=== PATIENT | female | born 1975 | race African-American/Black ===

== ENCOUNTER 2017-07-28 22:41 | Emergency (ER) | payer OTHER ==
[2017-07-29] MEDS ORDERED: Diazepam 5 MG TAB ONE (01:57)
[2017-07-29] MEDS ORDERED: Ketorolac Tromethamine 60 MG/2 ML VIAL ONE (01:57)
== END 2017-07-29 02:38 | disposition home or self-care (01) ==
LOC: ERS 22:41
DX: R51 Headache (principal); G43.909 Migraine, unspecified, not intractable, without status migrainosus; I25.10 Atherosclerotic heart disease of native coronary artery without angina pectoris; J44.9 Chronic obstructive pulmonary disease, unspecified; I10 Essential (primary) hypertension; F41.9 Anxiety disorder, unspecified; F31.9 Bipolar disorder, unspecified; F17.210 Nicotine dependence, cigarettes, uncomplicated; Z79.899 Other long term (current) drug therapy
CPT/HCPCS: 96372; 99406; J1885

== ENCOUNTER 2018-03-20 17:58 | Emergency (ER) | payer OTHER ==
[~2018-03-20 17:58] MED LIST: ISOVUE-370 76%-LOCM 1 ML ONE
[2018-03-20 18:38] LABS: #Basophils 0.1 thou/uL (0.0-0.2); #Eosinphils 0.3 thou/uL (0.0-0.7); #Lymphocytes 2.6 thou/uL (1.20-3.40); #Monocytes 0.3 thou/uL (0.11-0.59); #Neutrophils 4.3 thou/uL (1.40-6.50); %Basophils 1.5 % (0.0-1.0); %Eosinophils 3.8 % (0.0-10.0); %Lymphocytes 34.2 % (21.0-51.0); %Monocytes 3.9 % (0.0-10.0); %Neutrophils 56.5 % (42.0-75.0); Hemoglobin 14.3 g/dL (12.0-16.0); Mean Corpuscular HGB CONC 32.6 g/dL (32.0-36.0); Mean Corpuscular Hemoglobin 31.8 pg (27.0-31.0); Mean Corpuscular Volume 97.5 fL (78.0-98.0); Platelet Count 306 thou/uL (130-400); RBC Distribution Width 11.3 % (11.5-14.5); White Blood Cell (WBC) Count 7.5 thou/uL (4.8-10.8)
[2018-03-20 18:55] LABS: Bilirubin Negative (Negative); Blood, Urine Negative (Negative); Clarity CLOUDY (Clear); Glucose, Urine (Dipstick) Negative (Negative); Leukocyte Trace (Negative); Nitrite Negative (Negative); Protein, Urine (Dipstick) Negative (Neg-Trace); Specific Gravity, Urine 1.018 (1.002-1.036); Urobilinogen 0.2 mg/dL (0.2-1.0)
[2018-03-20 18:57] LABS: Pregnancy Test - Urine (BHCG) Negative (Negative); Pregu Control Background? CLEAR/WHITE (CLR/WHITE); Pregu Control Bar Appear? YES (CONTROL BAR); Specific Gravity 1.018 (1.002-1.036)
[2018-03-20 19:00] LABS: Bacteria/HPF 1+ HPF (None Seen); Hyaline Casts/LPF 0-3 HYALINE CAST LPF (0-3 Hyaline); WBC/HPF 0-3 HPF (0-3)
[2018-03-20 19:02] LABS: ALT (SGPT) 21 U/L (8-55); AST (SGOT) 16 U/L (5-34); Albumin 4.5 g/dL (3.5-5.0); Alkaline Phosphatase 66 U/L (40-150); Anion Gap 11 mmol/L (10-20); BUN (Urea Nitrogen) 9 mg/dL (7.0-18.7); Bilirubin, Total 0.4 mg/dL (0.2-1.2); Calc. Creatinine Clearance 0 mL/min (70-130); Calcium 9.8 mg/dL (7.8-10.44); Carbon Dioxide 27 mmol/L (22-29); Chloride 105 mmol/L (98-107); Estimated GFR-MDRD Greater than 90; Globulin 2.9 g/dL (2.4-3.5); Glucose 97 mg/dL (70-105); Potassium 3.8 mmol/L (3.5-5.1); Protein, Total 7.4 g/dL (6.0-8.3); Sodium 139 mmol/L (136-145)
[2018-03-20 19:12] LABS: RBC/HPF 0-3 HPF (0-3)
[2018-03-20] MEDS ORDERED: Morphine 4 MG/ML VIAL ONE (20:25)
--- NOTE | 2018-03-21 07:39 | CT ---
CT ABDOMEN WITH CONTRAST CT PELVIS WITH CONTRAST 03/20/18 HISTORY: Right lower quadrant pain. Evaluate for appendicitis. COMPARISON: 06/07/11. FINDINGS: ABDOMEN CT: Focus of scarring and atelectasis in both lower lobes. Heart size is within normal limits. No signifi cant pericardial fluid. The visualized aorta has a normal caliber. No periaortic fat stranding. Portal vein is patent. Gallbladder is unremarkable. Liver, spleen, pancreas, and adrenal glands have appropriate attenuation and enhancement. No gastrohepatic, retrocrural, or periportal lymphadenopathy. There is scattered, nonspecific, nonenlarged mesenteric lymph nodes. There is no evidence of a mesent shikha mass, free air, or free fluid. Small umbilical hernia containing mesenteric fat. Symmetric enhancement of the kidneys. Subcentimeter hypodensity in the left renal cortex cannot be fu rther characterized but is statistically favored to be a cyst. Bilaterally, no obstructive uropathy. Limited evaluation of the alimentary canal due to lack of oral contrast. Gastric mucosa, duodenum, an d small bowel loops are grossly unremarkable. The ileocecal junction is normal. There is scattered fe gus material in a nondistended, nondilated colon. Occasional diverticulum. No definite diverticulitis . There is a retrocecal appendix, which is air filled. No evidence of appendicitis. PELVIC CT: Uterus and left adnexa are unremarkable. There is a hypodensity in the right adnexa measuring 2.1 x 2 .4 cm. The possibility of a dominant follicle in the right ovary is raised. No significant pelvic lym phadenopathy, free air or free fluid. Unremarkable urinary bladder. There are no lytic or blastic lesions in the osseous structures. IMPRESSION: 1. No evidence of appendicitis. 2. Probable dominant follicle in the right ovary. POS: [facility]
== END 2018-03-20 22:57 | disposition home or self-care (01) ==
LOC: ERS 17:58
DX: N83.201 Unspecified ovarian cyst, right side (principal); I10 Essential (primary) hypertension; G43.909 Migraine, unspecified, not intractable, without status migrainosus; I20.9 Angina pectoris, unspecified; J44.9 Chronic obstructive pulmonary disease, unspecified; F31.9 Bipolar disorder, unspecified; F41.9 Anxiety disorder, unspecified; F17.210 Nicotine dependence, cigarettes, uncomplicated; Z79.899 Other long term (current) drug therapy
CPT/HCPCS: 36415; 74177; 80053; 81003; 81015; 81025; 85025; J2270

== ENCOUNTER 2018-12-11 14:37 | Outpatient (CLI) | payer OTHER ==
--- NOTE | 2018-12-11 15:20 | RAD ---
EXAM: Chest 2 views: HISTORY: Shortness of breath and abnormal pulmonary function tests COMPARISON: 08/22/2011 FINDINGS: There is a normal-sized cardiomediastinal silhouette. There is no evidence of consolidation, mass, or pleural effusion. The bones are unremarkable. IMPRESSION: No evidence of acute cardiopulmonary disease
== END 2018-12-11 14:38 | disposition home or self-care (01) ==
LOC: BICRAD 14:37
PROVIDERS: ATTEND Internal Medicine
DX: J44.9 Chronic obstructive pulmonary disease, unspecified (principal)
CPT/HCPCS: 71046

== ENCOUNTER 2019-03-02 04:00 | Emergency (ER) | payer OTHER ==
[2019-03-02 05:25] LABS: #Basophils 0.1 thou/uL (0.0-0.2); #Eosinphils 0.1 thou/uL (0.0-0.7); #Lymphocytes 1.6 thou/uL (1.20-3.40); #Monocytes 0.2 thou/uL (0.11-0.59); #Neutrophils 5.7 thou/uL (1.40-6.50); %Basophils 0.8 % (0.0-1.0); %Eosinophils 1.3 % (0.0-10.0); %Monocytes 2.6 % (0.0-10.0); %Neutrophils 74.3 % (42.0-75.0); Mean Corpuscular HGB CONC 33.3 g/dL (32.0-36.0); Mean Corpuscular Hemoglobin 32.9 pg (27.0-31.0); Mean Corpuscular Volume 98.7 fL (78.0-98.0); Mean Platelet Volume 8.2 fL (7.4-10.4); Platelet Count 248 thou/uL (130-400); RBC Distribution Width 12.5 % (11.5-14.5); Red Blood Cell (RBC) Count 3.94 mill/uL (4.20-5.40); White Blood Cell (WBC) Count 7.6 thou/uL (4.8-10.8)
[2019-03-02 05:54] LABS: ALT (SGPT) 17 U/L (8-55); AST (SGOT) 14 U/L (5-34); Albumin 4.3 g/dL (3.5-5.0); Alkaline Phosphatase 51 U/L (40-110); Anion Gap 14 mmol/L (10-20); BUN (Urea Nitrogen) 16 mg/dL (7.0-18.7); Bilirubin, Total 0.6 mg/dL (0.2-1.2); Calc. Creatinine Clearance 0 mL/min (70-130); Calcium 8.9 mg/dL (7.8-10.44); Carbon Dioxide 22 mmol/L (22-29); Chloride 109 mmol/L (98-107); Estimated GFR-MDRD 69; Globulin 2.5 g/dL (2.4-3.5); Glucose 119 mg/dL (70-105); Potassium 4.2 mmol/L (3.5-5.1); Protein, Total 6.8 g/dL (6.0-8.3); Sodium 141 mmol/L (136-145)
--- NOTE | 2019-03-02 09:43 | RAD ---
CHEST 1 VIEW: HISTORY: Dyspnea. COMPARISON: 12/11/2018. FINDINGS: Normal cardiac silhouette. The pulmonary vessels and hilum are normal. Costophrenic angles are merly r. No consolidation or mass. No pneumothorax or osseous abnormalities. IMPRESSION: No acute cardiopulmonary process. POS: [facility]
== END 2019-03-02 06:36 | disposition home or self-care (01) ==
LOC: ERS 04:00
DX: J44.1 Chronic obstructive pulmonary disease with (acute) exacerbation (principal); G43.909 Migraine, unspecified, not intractable, without status migrainosus; I25.10 Atherosclerotic heart disease of native coronary artery without angina pectoris; I10 Essential (primary) hypertension; F31.9 Bipolar disorder, unspecified; F41.9 Anxiety disorder, unspecified; F17.210 Nicotine dependence, cigarettes, uncomplicated; Z79.899 Other long term (current) drug therapy
CPT/HCPCS: 36415; 71045; 80053; 83880; 84484; 85025; 93005; 94640; J7620

== ENCOUNTER 2019-03-20 13:17 | Outpatient (CLI) | payer OTHER ==
--- NOTE | 2019-03-25 11:38 | MMO ---
Bilateral MAMMO Bilat Screen DDI. CLINICAL HISTORY: Patient is 44 years old and is seen for screening. The patient has no family history of breast cancer. The patient has no personal history of cancer. VIEWS: The views performed were: bilateral craniocaudal and bilateral mediolateral oblique. FILMS COMPARED: The present examination has been compared to prior imaging studies performed at [facility] on 10/01/2014, 10/19/2015 and 01/10/2017, and at [facility] on 01/03/2018. This study has been interpreted with the assistance of computer-aided detection. MAMMOGRAM FINDINGS: The breasts are heterogeneously dense, which could obscure a lesion on mammography. There is an asymmetry seen in the CC view only seen in the posterior outer region of the right breast. In the left breast, there are no suspicious masses, calcifications or areas of architectural distortion. IMPRESSION: ASYMMETRY IN THE RIGHT BREAST REQUIRES ADDITIONAL EVALUATION. RECOMMEND DIAGNOSTIC MAMMOGRAM. ULTRASOUND MAY ALSO PROVE USEFUL AT RECALL. ACR BI-RADS Category 0 - Incomplete: Need additional imaging evaluation. [facility] will notify the patient of the need for additional imaging services. MAMMOGRAPHY NOTE: 1. A negative mammogram report should not delay a biopsy if a dominant of clinically suspicious mass is present. 2. Approximately 10% to 15% of breast cancers are not detected by mammography. 3. Adenosis and dense breasts may obscure an underlying neoplasm. Reported by: ARIANNA TERRY MD Electonically Signed: [id number]
== END 2019-03-20 13:18 | disposition home or self-care (01) ==
LOC: BICMAMMO 13:17
PROVIDERS: ATTEND Family Medicine
DX: Z12.31 Encounter for screening mammogram for malignant neoplasm of breast (principal); N64.89 Other specified disorders of breast
CPT/HCPCS: 77063; 77067

== ENCOUNTER 2019-04-01 14:51 | Outpatient (CLI) | payer OTHER ==
--- NOTE | 2019-04-01 15:24 | MMO ---
Right Breast MAMMO Unilat Diag DDI RT+TARUN. CLINICAL HISTORY: Patient is 44 years old and is seen for additional evaluation requested at current screening. The patient has no family history of breast cancer. The patient has no personal history of cancer. VIEWS: The views performed were: right craniocaudal spot compression with tomosynthesis and right mediolateral with tomosynthesis. FILMS COMPARED: The present examination has been compared to prior imaging studies performed at [facility] on 10/19/2015, 01/10/2017 and 03/20/2019, and at [facility] on 01/03/2018. This study has been interpreted with the assistance of computer-aided detection. MAMMOGRAM FINDINGS: Asymmetry does not persist on additional views and is felt to represent superimposed breast parenchyma. There are no suspicious masses, suspicious calcifications, or new areas of architectural distortion. IMPRESSION: THERE IS NO MAMMOGRAPHIC EVIDENCE OF MALIGNANCY. A ROUTINE FOLLOW-UP MAMMOGRAM IN 1 YEAR IS RECOMMENDED. THE RESULTS OF THIS EXAM WERE SENT TO THE PATIENT. ACR BI-RADS Category 2 - Benign finding MAMMOGRAPHY NOTE: 1. A negative mammogram report should not delay a biopsy if a dominant of clinically suspicious mass is present. 2. Approximately 10% to 15% of breast cancers are not detected by mammography. 3. Adenosis and dense breasts may obscure an underlying neoplasm. Reported by: KATIA MUNIZ MD Electonically Signed: [id number]
== END 2019-04-01 14:52 | disposition home or self-care (01) ==
LOC: BICMAMMO 14:51
PROVIDERS: ATTEND Family Medicine
DX: N64.89 Other specified disorders of breast (principal)
CPT/HCPCS: G0279

== ENCOUNTER 2019-06-04 09:28 | Outpatient (CLI) | payer OTHER ==
--- NOTE | 2019-06-04 10:19 | MRI ---
MRI CERVICAL SPINE WITHOUT CONTRAST: HISTORY: Cervical neuralgia. Neck pain that radiates down both arms, times a few months. Symptoms are worsenin g.. COMPARISON: None. FINDINGS: Straightening of cervical lordosis may be due to patient position, muscle spasm or a cervical collar. Vertebral body height is maintained. No fracture. No significant STIR hyperintensity to suggest vertebral body edema or ligamentous injury. Visualized brain parenchyma, cervicomedullary junction, cervical cord and the upper thoracic cord hav e a normal size and signal intensity. C2-C3: No significant central canal stenosis or significant neural foraminal narrowing. C3-C4: Central disc protrusion abuts the thecal sac and minimally deforms the midline ventral cord, w ithout cord hyperintensity. Minimal central canal stenosis. Bilaterally, neural foramina are patent. C4-C5: Broad-based disc bulge with a central disc protrusion does make contact with the ventral theca l sac and effaces the midline subarachnoid space. Minimal deformity of the midline cervical cord. No cord hyperintensity. Mild central canal stenosis. Bilaterally, the neural foramina are patent. C5-C6: Broad-based disc bulge abuts the thecal sac. Subarachnoid space is effaced. Minimal contact up on the ventral cord without cord deformity. No significant central canal stenosis. Bilaterally, the neural foramina are patent. C6-C7: Broad-based disc bulge abuts the thecal sac. No significant central canal stenosis or signific ant neural foraminal narrowing. C7-T1: No significant central canal stenosis. Neural foramina are patent. IMPRESSION: 1. No significant central canal stenosis or significant neural foraminal narrowing. 2. Straightening of normal cervical lordosis is presumed to be positional. No STIR hyperintensity to suggest ligamentous injury. Transcribed Date/Time: 06/04/2019 10:33 AM
== END 2019-06-04 09:29 | disposition home or self-care (01) ==
LOC: BICMRI 09:28
PROVIDERS: ATTEND Family Medicine
DX: G58.8 Other specified mononeuropathies (principal)
CPT/HCPCS: 72141

== ENCOUNTER 2019-11-18 17:42 | Emergency (ER) | payer OTHER | END 2019-11-18 18:30 | disposition home or self-care (01) | LOC: ERS 17:42 | DX: J44.1 Chronic obstructive pulmonary disease with (acute) exacerbation (principal); F41.9 Anxiety disorder, unspecified; R07.89 Other chest pain; G43.909 Migraine, unspecified, not intractable, without status migrainosus; I25.10 Atherosclerotic heart disease of native coronary artery without angina pectoris; I10 Essential (primary) hypertension; E78.5 Hyperlipidemia, unspecified; F31.9 Bipolar disorder, unspecified; F17.210 Nicotine dependence, cigarettes, uncomplicated; Z79.899 Other long term (current) drug therapy; Z79.51 Long term (current) use of inhaled steroids | CPT/HCPCS: 93005 ==

== ENCOUNTER 2020-02-28 15:47 | Emergency (ER) | payer OTHER ==
--- NOTE | 2020-02-28 17:25 | RAD ---
XR Chest Pa Lat STANDARD History: Chest pain Comparison: Radiograph 2019 Findings: Lungs are clear. No pneumothorax or effusion. Cardiac silhouette and mediastinal contours a re within normal limits. No acute osseous abnormality. Impression: No acute intrathoracic abnormality.
[2020-02-28] MEDS ORDERED: Ketorolac Tromethamine 30 MG/ML VIAL ONE (18:02)
[2020-02-28] MEDS ORDERED: Tobramycin 0.3% Ophth Oint 3.5 GM TUBE ONE (18:02)
== END 2020-02-28 19:05 | disposition home or self-care (01) ==
LOC: ERS 15:47
DX: M25.512 Pain in left shoulder (principal); M25.511 Pain in right shoulder; G43.909 Migraine, unspecified, not intractable, without status migrainosus; I25.10 Atherosclerotic heart disease of native coronary artery without angina pectoris; J44.9 Chronic obstructive pulmonary disease, unspecified; I10 Essential (primary) hypertension; E78.5 Hyperlipidemia, unspecified; F41.9 Anxiety disorder, unspecified; F31.9 Bipolar disorder, unspecified; F17.210 Nicotine dependence, cigarettes, uncomplicated; Z79.899 Other long term (current) drug therapy; V89.2XXA Person injured in unspecified motor-vehicle accident, traffic, initial encounter
CPT/HCPCS: 71046; 96372; J1885

== ENCOUNTER 2020-10-10 14:06 | Outpatient (CLI) | payer OTHER | END 2020-10-10 14:07 | disposition home or self-care (01) | LOC: BICMAMMO 14:06 | PROVIDERS: ATTEND Obstetrics & Gynecology | DX: Z12.31 Encounter for screening mammogram for malignant neoplasm of breast (principal); J44.1 Chronic obstructive pulmonary disease with (acute) exacerbation | CPT/HCPCS: 71046; 77067 ==

== ENCOUNTER 2020-11-08 15:14 | Outpatient (CLI) | payer OTHER ==
[2020-11-09 07:00] LABS: SARS-CoV-2 PCR by NAA Not Detected (NotDetected)
== END 2020-11-08 15:15 | disposition home or self-care (01) ==
LOC: LABBT 15:14
PROVIDERS: ATTEND Internal Medicine Gastroenterology
DX: Z01.812 Encounter for preprocedural laboratory examination (principal); Z12.11 Encounter for screening for malignant neoplasm of colon; R10.9 Unspecified abdominal pain; Z20.822 Contact with and (suspected) exposure to COVID-19
CPT/HCPCS: U0003; U0005

== ENCOUNTER 2020-11-11 06:44 | Day surgery (SDC) | payer OTHER ==
[2020-11-10 10:40] VITALS: BMI 35.9
[2020-11-11] MEDS ORDERED: PROPOFOL 200 MG/20 ML VIAL ONE (09:24)
[2020-11-11] MEDS ORDERED: Lidocaine 1% PF 5 ML VIAL ONE (09:24)
== END 2020-11-11 12:05 | disposition home or self-care (01) ==
LOC: SDC 06:44
PROVIDERS: ATTEND Internal Medicine Gastroenterology
PROC: 0DBN8ZX Excision of Sigmoid Colon, Via Natural or Artificial Opening Endoscopic, Diagnostic (ICD-10-PCS; principal; 2020-11-11)
PROC: 0DB68ZX Excision of Stomach, Via Natural or Artificial Opening Endoscopic, Diagnostic (ICD-10-PCS; principal; 2020-11-11)
DX: Z12.11 Encounter for screening for malignant neoplasm of colon (principal); D12.5 Benign neoplasm of sigmoid colon; K64.9 Unspecified hemorrhoids; K29.50 Unspecified chronic gastritis without bleeding; K21.9 Gastro-esophageal reflux disease without esophagitis; K25.9 Gastric ulcer, unspecified as acute or chronic, without hemorrhage or perforation; I10 Essential (primary) hypertension; E78.5 Hyperlipidemia, unspecified; G47.30 Sleep apnea, unspecified; G43.909 Migraine, unspecified, not intractable, without status migrainosus; F17.210 Nicotine dependence, cigarettes, uncomplicated; Z79.51 Long term (current) use of inhaled steroids; Z79.899 Other long term (current) drug therapy
CPT/HCPCS: 88305; J2704

== ENCOUNTER 2020-11-28 19:30 | Outpatient (CLI) | payer OTHER | END 2020-11-28 19:31 | disposition home or self-care (01) | LOC: SLEEPLAB 19:30 | PROVIDERS: ATTEND Obstetrics & Gynecology | DX: G47.33 Obstructive sleep apnea (adult) (pediatric) (principal); R53.83 Other fatigue; J44.9 Chronic obstructive pulmonary disease, unspecified; I10 Essential (primary) hypertension; G47.10 Hypersomnia, unspecified; E66.9 Obesity, unspecified; Z68.34 Body mass index [BMI] 34.0-34.9, adult | CPT/HCPCS: 95811 ==

== ENCOUNTER 2021-01-06 14:05 | Outpatient (CLI) | payer OTHER ==
[2021-01-06 15:46] LABS: #Eosinphils 0.5 10x3/uL (0.0-0.5); #Monocytes 0.4 10x3/uL (0.0-1.1); #Neutrophils 3.2 10x3/uL (1.5-8.4); %Basophils 0.5 % (0.0-2.0); %Eosinophils 7.8 % (0.0-6.0); %Lymphocytes 30.7 % (18.0-47.0); %Monocytes 5.9 % (0.0-10.0); %Neutrophils 54.9 % (40.0-75.0); Hemoglobin 13.7 g/dL (12.0-15.5); Mean Corpuscular HGB CONC 32.2 g/dL (32.0-36.0); Mean Corpuscular Hemoglobin 30.6 pg (27.0-33.0); Mean Corpuscular Volume 95.1 fl (81.6-98.3); Mean Platelet Volume 11.1 fl (7.4-10.4); Platelet Count 280 10x3/uL (150-450); RBC Distribution Width 11.8 % (11.5-14.5); Red Blood Cell (RBC) Count 4.47 10x6/uL (3.90-5.03); White Blood Cell (WBC) Count 5.9 10x3/uL (3.5-10.5)
[2021-01-06 16:05] LABS: ALT (SGPT) 26 U/L (8-55); AST (SGOT) 20 U/L (5-34); Albumin 4.4 g/dL (3.5-5.0); Alkaline Phosphatase 69 U/L (40-110); Anion Gap 12 mmol/L (10-20); BUN (Urea Nitrogen) 14 mg/dL (7.0-18.7); Bilirubin, Total 0.8 mg/dL (0.2-1.2); Calc. Creatinine Clearance 0 mL/min (70-130); Calcium 10.2 mg/dL (7.8-10.44); Carbon Dioxide 27 mmol/L (22-29); Chloride 105 mmol/L (98-107); Globulin 2.8 g/dL (2.4-3.5); Glucose 93 mg/dL (70-105); Potassium 4.4 mmol/L (3.5-5.1); Protein, Total 7.2 g/dL (6.0-8.3)
[2021-01-06 16:11] LABS: Sodium 140 mmol/L (136-145)
[2021-01-07 13:56] LABS: SARS-CoV-2 PCR by NAA Not Detected (NotDetected)
== END 2021-01-06 14:06 | disposition home or self-care (01) ==
LOC: LABBT 14:05
PROVIDERS: ATTEND Internal Medicine Cardiovascular Disease
DX: Z01.812 Encounter for preprocedural laboratory examination (principal); Z20.822 Contact with and (suspected) exposure to COVID-19
CPT/HCPCS: 80053; 85025; U0003; U0005

== ENCOUNTER 2021-01-11 06:03 | Day surgery (SDC) | payer OTHER ==
[2021-01-10 14:53] VITALS: BMI 33.6
[2021-01-11] MEDS ORDERED: Heparin 10,000 UNITS/ 10 ML VIAL ONE (06:38)
[2021-01-11] MEDS ORDERED: Midazolam HCl 2 mg/2 ml Vial ONE ×2 (06:56→08:29)
[2021-01-11] MEDS ORDERED: Fentanyl 100 MCG/2 ML VIAL ONE (06:56)
[2021-01-11] MEDS ORDERED: Nitroglycerin 100MG/250ML BOT 250 ML ONE (06:58)
[2021-01-11] MEDS ORDERED: Verapamil 5 MG/2 ML VIAL ONE (06:58)
[2021-01-11] MEDS ORDERED: Lidocaine 1% (PF) 30 ML VIAL ONE (07:08)
[2021-01-11] MEDS ORDERED: hydrALAZINE 20 MG/ML VIAL ONE ×2 (07:20→07:27)
[2021-01-11] MEDS ORDERED: diphenhydrAMINE 25 MG CAP ONE (08:21)
[2021-01-11] MEDS ORDERED: methylPREDNISolone Sod Succ/PF 125 MG/2 ML VIAL ONE (08:22)
[2021-01-11] MEDS ORDERED: diphenhydrAMINE 50 MG/ML VIAL ONE (08:22)
[2021-01-11] MEDS ORDERED: Hydrocortisone Sod Succ/PF 100 mg/2 ml Vial ONE (08:22)
[2021-01-11] MEDS ORDERED: Furosemide 20 MG/2 ML VIAL ONE (08:26)
[2021-01-11] MEDS ORDERED: Acetaminophen 500 MG TAB ONE (10:49)
[2021-01-11] MEDS ORDERED: Iopamidol 370 76% 100 ML VIAL ONE (13:48)
== END 2021-01-11 15:06 | disposition home or self-care (01) ==
LOC: CCL 06:03
PROVIDERS: ATTEND Internal Medicine Cardiovascular Disease
PROC: 4A023N7 Measurement of Cardiac Sampling and Pressure, Left Heart, Percutaneous Approach (ICD-10-PCS; principal; 2021-01-11)
PROC: B2111ZZ Fluoroscopy of Multiple Coronary Arteries using Low Osmolar Contrast (ICD-10-PCS; principal; 2021-01-11)
DX: I20.9 Angina pectoris, unspecified (principal); R06.02 Shortness of breath; E78.00 Pure hypercholesterolemia, unspecified; I11.9 Hypertensive heart disease without heart failure; E78.5 Hyperlipidemia, unspecified; G47.33 Obstructive sleep apnea (adult) (pediatric); E28.2 Polycystic ovarian syndrome; F17.210 Nicotine dependence, cigarettes, uncomplicated; R06.2 Wheezing; R00.1 Bradycardia, unspecified; Z79.82 Long term (current) use of aspirin; Z79.899 Other long term (current) drug therapy
CPT/HCPCS: 76942; 93005; 93458; 99152; 99153; J0360; J1200; J1644; J1720; J1940; J2001; J2250; J2930; J3010; Q9967

== ENCOUNTER 2021-02-13 13:15 | Outpatient (CLI) | payer OTHER | END 2021-02-13 13:16 | disposition home or self-care (01) | LOC: BICCT 13:15 | PROVIDERS: ATTEND Internal Medicine | DX: J44.1 Chronic obstructive pulmonary disease with (acute) exacerbation (principal); R91.8 Other nonspecific abnormal finding of lung field | CPT/HCPCS: 71250 ==

== ENCOUNTER 2021-10-05 18:21 | Emergency (ER) | payer OTHER ==
[2021-10-05] MEDS ORDERED: HYDROmorphone 0.5 MG/0.5 ML SYRINGE ONE (20:32)
[2021-10-05] MEDS ORDERED: Lidocaine 1% PF 5 ML VIAL ONE (20:35)
[2021-10-05] MEDS ORDERED: Sulfameth/Trimethoprim DS 800-160mg TAB ONE (21:02)
== END 2021-10-05 21:04 | disposition home or self-care (01) ==
LOC: ERS 18:21
DX: L02.411 Cutaneous abscess of right axilla (principal); J44.9 Chronic obstructive pulmonary disease, unspecified; I10 Essential (primary) hypertension; E78.5 Hyperlipidemia, unspecified; F17.210 Nicotine dependence, cigarettes, uncomplicated
CPT/HCPCS: 10060; 96372; J1170

== ENCOUNTER 2022-03-08 12:08 | Outpatient (CLI) | payer OTHER | END 2022-03-08 12:09 | disposition home or self-care (01) | LOC: BICMAMMO 12:08 | PROVIDERS: ATTEND Student in an Organized Health Care Education/Training Program | DX: Z12.31 Encounter for screening mammogram for malignant neoplasm of breast (principal) | CPT/HCPCS: 77067 ==

== ENCOUNTER 2022-03-22 10:48 | Outpatient (CLI) | payer OTHER | END 2022-03-22 10:49 | disposition home or self-care (01) | LOC: BICRAD 10:48 | PROVIDERS: ATTEND Registered Nurse | DX: M47.22 Other spondylosis with radiculopathy, cervical region (principal) | CPT/HCPCS: 72040 ==

== ENCOUNTER 2022-04-04 15:04 | Inpatient (IN) | payer OTHER ==
[~2022-04-04 15:04] MED LIST changes: -ISOVUE-370 76%-LOCM 1 ML ONE; +Iopamidol-370 76% 500 ML 1 ML ONE
[2022-04-04 15:43] LABS: #Lymphocytes 0.6 thou/uL (1.20-3.40); #Monocytes 0.4 thou/uL (0.11-0.59); #Neutrophils 9.7 thou/uL (1.40-6.50); %Basophils 0.2 % (0.0-1.0); %Eosinophils 0.3 % (0.0-10.0); %Lymphocytes 5.7 % (21.0-51.0); %Monocytes 3.4 % (0.0-10.0); %Neutrophils 90.4 % (42.0-75.0); Hemoglobin 14.6 g/dL (12.0-16.0); Mean Corpuscular HGB CONC 31.6 g/dL (32.0-36.0); Mean Corpuscular Hemoglobin 32.2 pg (27.0-31.0); Mean Platelet Volume 8.6 fL (7.4-10.4); Platelet Count 226 10x3/uL (130-400); RBC Distribution Width 12.7 % (11.5-14.5); Red Blood Cell (RBC) Count 4.52 mill/uL (4.20-5.40); White Blood Cell (WBC) Count 10.7 10x3/uL (4.8-10.8)
[2022-04-04 16:14] LABS: ALT (SGPT) 53 U/L (8-55); AST (SGOT) 23 U/L (5-34); Albumin 4.6 g/dL (3.5-5.0); Alkaline Phosphatase 98 U/L (40-110); Anion Gap 11 mmol/L (10-20); BUN (Urea Nitrogen) 9 mg/dL (7.0-18.7); Bilirubin, Total 1.1 mg/dL (0.2-1.2); Calc. Creatinine Clearance 0 mL/min (70-130); Carbon Dioxide 30 mmol/L (22-29); Chloride 100 mmol/L (98-107); Estimated GFR 82; Globulin 3.5 g/dL (2.4-3.5); Glucose 100 mg/dL (70-105); Potassium 4.1 mmol/L (3.5-5.1); Protein, Total 8.1 g/dL (6.0-8.3); Sodium 137 mmol/L (136-145)
[2022-04-04] MEDS ORDERED: Acetaminophen 500 MG TAB ONE (17:00)
[2022-04-04] MEDS ORDERED: Ibuprofen 800 MG TAB ONE (17:00)
[2022-04-04 17:54] LABS: CKMB 3.1 ng/mL (0-6.6)
[2022-04-04 18:50] LABS: BHCG - Serum Negative (NEGATIVE); Pregs Control Background? CLEAR/WHITE (CLR/WHITE); Pregs Control Bar Appear? YES (CONTROL BAR)
[2022-04-04] MEDS ORDERED: Albuterol Sulfate 2.5 mg/3 ml Neb ONE ×2 (18:51→22:01)
[2022-04-04] MEDS ORDERED: methylPREDNISolone Sod Succ/PF 125 MG/2 ML VIAL ONE (19:03)
[2022-04-04] MEDS ORDERED: cefTRIAXone\\ROCEPHIN 2 GM VIAL ONE (19:08)
[2022-04-04 20:01] LABS: Bilirubin Negative (Negative); Blood, Urine Negative (Negative); Clarity Clear (Clear); Glucose, Urine (Dipstick) Normal (Negative); Ketone, Urine Trace mg/dL (Negative); Leukocyte Negative Leu/uL (Negative); Nitrite Negative (Negative); Protein, Urine (Dipstick) 10 mg/dL (Neg-Trace); Specific Gravity, Urine 1.007 (1.002-1.036); Urobilinogen Normal mg/dL (Less than 2); pH, Urine 6.5 (5.0-9.0)
[2022-04-04 21:20] LABS: SARS-CoV-2 NAA Rapid Test Not Detected (NotDetected)
[2022-04-04] MEDS ORDERED: Oseltamivir 75 MG CAP PO SCH (22:15)
[2022-04-04] MEDS ORDERED: Azithromycin 500 MG VIAL ONE (22:52)
[2022-04-04] MEDS ORDERED: Aspirin Chewable 81 MG TAB ONE (22:52)
[2022-04-04] MEDS ORDERED: Ondansetron ODT 4 MG TAB PO PRN (22:58)
[2022-04-04] MEDS ORDERED: Ondansetron PF 4 MG/2 ML Vial IVP PRN (22:58)
[2022-04-04] MEDS ORDERED: Acetaminophen 325 MG TAB PO PRN (22:58)
[2022-04-04] MEDS ORDERED: Lactated Ringer's 1,000 ML IV SCH (23:15)
[2022-04-05] MEDS ORDERED: Amlodipine 5 MG TAB ONE (00:19)
[2022-04-05 00:28] LABS: CKMB 3.8 ng/mL (0-6.6)
[2022-04-05 01:42] VITALS: BMI 32.9
[2022-04-05 02:08] LABS: #Lymphocytes 0.5 thou/uL (1.20-3.40); #Neutrophils 9.2 thou/uL (1.40-6.50); %Lymphocytes 5.5 % (21.0-51.0); %Monocytes 0.3 % (0.0-10.0); %Neutrophils 94.1 % (42.0-75.0); Hemoglobin 13.7 g/dL (12.0-16.0); Mean Corpuscular HGB CONC 31.3 g/dL (32.0-36.0); Mean Corpuscular Hemoglobin 31.8 pg (27.0-31.0); Mean Platelet Volume 8.8 fL (7.4-10.4); Platelet Count 199 10x3/uL (130-400); RBC Distribution Width 12.6 % (11.5-14.5); Red Blood Cell (RBC) Count 4.31 mill/uL (4.20-5.40); White Blood Cell (WBC) Count 9.8 10x3/uL (4.8-10.8)
[2022-04-05] MEDS: Lactated Ringer's 1,000 ML IV SCH ×4 (02:13→21:32)
[2022-04-05 02:59] LABS: ALT (SGPT) 44 U/L (8-55); AST (SGOT) 21 U/L (5-34); Albumin 4.1 g/dL (3.5-5.0); Alkaline Phosphatase 100 U/L (40-110); Anion Gap 13 mmol/L (10-20); BUN (Urea Nitrogen) 10 mg/dL (7.0-18.7); Bilirubin, Total 0.5 mg/dL (0.2-1.2); Calc. Creatinine Clearance 98 mL/min (70-130); Calcium 9.5 mg/dL (7.8-10.44); Carbon Dioxide 27 mmol/L (22-29); Chloride 100 mmol/L (98-107); Estimated GFR 82; Globulin 3.3 g/dL (2.4-3.5); Glucose 153 mg/dL (70-105); Potassium 4.2 mmol/L (3.5-5.1); Protein, Total 7.4 g/dL (6.0-8.3); Sodium 136 mmol/L (136-145)
[2022-04-05] MEDS: Hydrochlorothiazide 25 MG TAB PO SCH (08:03)
[2022-04-05] MEDS: Atorvastatin Calcium 40 MG TAB PO SCH (08:03)
[2022-04-05] MEDS: Bupropion 150 MG XL TAB PO SCH (08:03)
[2022-04-05] MEDS: Enoxaparin Sodium 40 MG/0.4 ML SYRINGE SC SCH (08:04)
[2022-04-05] MEDS: Losartan 25 MG TAB PO SCH (08:04)
[2022-04-05] MEDS ORDERED: Non-Formulary Item 1 EACH (Lurasidone 20 MG Tab) PO SCH (09:00)
[2022-04-05] MEDS ORDERED: Oseltamivir 75 MG CAP PO SCH (09:00)
[2022-04-05] MEDS ORDERED: predniSONE 20 MG TAB PO SCH (12:00)
[2022-04-05] MEDS: Oseltamivir 75 MG CAP PO SCH (21:31)
[2022-04-06] MEDS: Lactated Ringer's 1,000 ML IV SCH ×4 (00:42→15:34)
[2022-04-06] MEDS: Oseltamivir 75 MG CAP PO SCH ×2 (07:46→22:05)
[2022-04-06] MEDS: Losartan 25 MG TAB PO SCH (07:47)
[2022-04-06] MEDS: predniSONE 20 MG TAB PO SCH (07:47)
[2022-04-06] MEDS: Hydrochlorothiazide 25 MG TAB PO SCH (07:47)
[2022-04-06] MEDS: Bupropion 150 MG XL TAB PO SCH (07:47)
[2022-04-06] MEDS: Atorvastatin Calcium 40 MG TAB PO SCH (07:47)
[2022-04-06] MEDS: Enoxaparin Sodium 40 MG/0.4 ML SYRINGE SC SCH (07:49)
[2022-04-07] MEDS: Lactated Ringer's 1,000 ML IV SCH ×2 (00:16→04:21)
[2022-04-07 04:24] LABS: #Lymphocytes 1.3 thou/uL (1.20-3.40); #Monocytes 0.4 thou/uL (0.11-0.59); #Neutrophils 3.5 thou/uL (1.40-6.50); %Basophils 0.1 % (0.0-1.0); %Eosinophils 0.5 % (0.0-10.0); %Lymphocytes 24.5 % (21.0-51.0); %Monocytes 7.2 % (0.0-10.0); %Neutrophils 67.8 % (42.0-75.0); Hemoglobin 12.3 g/dL (12.0-16.0); Mean Corpuscular HGB CONC 30.3 g/dL (32.0-36.0); Mean Corpuscular Hemoglobin 30.9 pg (27.0-31.0); Mean Platelet Volume 9.4 fL (7.4-10.4); Platelet Count 219 10x3/uL (130-400); RBC Distribution Width 12.3 % (11.5-14.5); Red Blood Cell (RBC) Count 3.98 mill/uL (4.20-5.40); White Blood Cell (WBC) Count 5.1 10x3/uL (4.8-10.8)
[2022-04-07 04:51] LABS: Anion Gap 11 mmol/L (10-20); BUN (Urea Nitrogen) 19 mg/dL (7.0-18.7); Calc. Creatinine Clearance 93 mL/min (70-130); Calcium 9.2 mg/dL (7.8-10.44); Carbon Dioxide 30 mmol/L (22-29); Chloride 103 mmol/L (98-107); Estimated GFR 77; Glucose 96 mg/dL (70-105); Potassium 4.1 mmol/L (3.5-5.1); Sodium 140 mmol/L (136-145)
[2022-04-07] MEDS: Oseltamivir 75 MG CAP PO SCH ×2 (09:48→21:43)
[2022-04-07] MEDS: predniSONE 20 MG TAB PO SCH (09:48)
[2022-04-07] MEDS: Bupropion 150 MG XL TAB PO SCH (09:48)
[2022-04-07] MEDS: Atorvastatin Calcium 40 MG TAB PO SCH (09:48)
[2022-04-07] MEDS: Enoxaparin Sodium 40 MG/0.4 ML SYRINGE SC SCH (09:48)
[2022-04-07] MEDS: Hydrochlorothiazide 25 MG TAB PO SCH (09:48)
[2022-04-07] MEDS: Losartan 25 MG TAB PO SCH (09:48)
[2022-04-07] MEDS ORDERED: Hydrochlorothiazide 25 MG TAB PO SCH (12:16)
[2022-04-07] MEDS ORDERED: hydrALAZINE 20 MG/ML VIAL SLOW IVP SCH (23:30)
[2022-04-08] MEDS ORDERED: hydrALAZINE 20 MG/ML VIAL SLOW IVP PRN (01:00)
[2022-04-08] MEDS ORDERED: hydrOXYzine 25 MG TAB PO PRN (02:10)
[2022-04-08 08:47] VITALS: BP 159/79; TEMP 98.6
[2022-04-08] MEDS ORDERED: Hydrochlorothiazide 25 MG TAB PO SCH (09:00)
[2022-04-08] MEDS ORDERED: NIFEdipine XL 30 MG TAB PO SCH (09:00)
[2022-04-08] MEDS: Atorvastatin Calcium 40 MG TAB PO SCH (09:31)
[2022-04-08] MEDS: Bupropion 150 MG XL TAB PO SCH (09:31)
[2022-04-08] MEDS: Enoxaparin Sodium 40 MG/0.4 ML SYRINGE SC SCH (09:31)
[2022-04-08] MEDS: predniSONE 20 MG TAB PO SCH (09:31)
[2022-04-08] MEDS: Oseltamivir 75 MG CAP PO SCH (09:31)
[2022-04-08] MEDS: Losartan 25 MG TAB PO SCH (11:16)
== END 2022-04-08 11:35 | disposition home or self-care (01) | DRG 193 ==
LOC: ERS 15:04 → 2NO 22:52 → OBSVTOIN 04-05 17:32 → T4-B 04-07 22:51
PROVIDERS: ADMIT Family Medicine; ATTEND Family Medicine
DX: J10.00 Influenza due to other identified influenza virus with unspecified type of pneumonia (principal); J96.01 Acute respiratory failure with hypoxia; J45.901 Unspecified asthma with (acute) exacerbation; Z20.822 Contact with and (suspected) exposure to COVID-19; I10 Essential (primary) hypertension; F31.9 Bipolar disorder, unspecified; G47.33 Obstructive sleep apnea (adult) (pediatric); E66.9 Obesity, unspecified; E86.0 Dehydration; F17.210 Nicotine dependence, cigarettes, uncomplicated; G43.909 Migraine, unspecified, not intractable, without status migrainosus; Z79.51 Long term (current) use of inhaled steroids; Z79.899 Other long term (current) drug therapy; Z68.32 Body mass index [BMI] 32.0-32.9, adult
CPT/HCPCS: 36415; 36416; 71046; 71275; 80048; 80053; 81003; 82553; 83605; 83880; 84145; 84484; 84703; 85025; 87040; 93005; 94640; 96365; 96366; 96367; 96372; 96375; G0378; J0360; J0456; J0696; J1650; J2930; J7120; J7512; J7611; J7620; Q9967

== ENCOUNTER 2022-05-23 10:22 | Outpatient (CLI) | payer OTHER | END 2022-05-23 10:23 | disposition home or self-care (01) | LOC: MRI 10:22 | PROVIDERS: ATTEND Registered Nurse | DX: M54.12 Radiculopathy, cervical region (principal) | CPT/HCPCS: 72141 ==

== ENCOUNTER 2023-03-14 20:40 | Emergency (ER) | payer OTHER ==
[~2023-03-14 20:40] MED LIST changes: -Iopamidol-370 76% 500 ML 1 ML ONE; +Iopamidol-370 76% 500 ML MDV (1 ML CHARGE) ONE
[2023-03-14 21:19] LABS: #Basophils 0.1 thou/uL (0.0-0.2); #Eosinphils 0.4 thou/uL (0.0-0.7); #Monocytes 0.4 thou/uL (0.11-0.59); %Basophils 0.6 % (0.0-1.0); %Eosinophils 5.1 % (0.0-10.0); %Lymphocytes 28.2 % (21.0-51.0); %Monocytes 4.8 % (0.0-10.0); %Neutrophils 60.9 % (42.0-75.0); Hematocrit 39.9 % (36.0-47.0); Mean Corpuscular HGB CONC 32.6 g/dL (32.0-36.0); Mean Corpuscular Hemoglobin 31.6 pg (27.0-31.0); Mean Corpuscular Volume 96.8 fl (78.0-98.0); Mean Platelet Volume 10.7 fL (7.4-10.4); Platelet Count 274 10x3/uL (130-400); RBC Distribution Width 13.2 % (11.5-14.5); Red Blood Cell (RBC) Count 4.12 mill/uL (4.20-5.40); White Blood Cell (WBC) Count 8.2 10x3/uL (4.8-10.8)
[2023-03-14 21:40] LABS: ALT (SGPT) 19 U/L (8-55); AST (SGOT) 18 U/L (5-34); Albumin 4.7 g/dL (3.5-5.0); Alkaline Phosphatase 68 U/L (40-110); Anion Gap 11 mmol/L (10-20); BUN (Urea Nitrogen) 14 mg/dL (7.0-18.7); Bilirubin, Total 0.3 mg/dL (0.2-1.2); Calc. Creatinine Clearance 0 mL/min (70-130); Calcium 9.4 mg/dL (7.8-10.44); Carbon Dioxide 28 mmol/L (22-29); Chloride 106 mmol/L (98-107); Estimated GFR 73; Globulin 2.5 g/dL (2.4-3.5); Glucose 120 mg/dL (70-105); Potassium 3.7 mmol/L (3.5-5.1); Protein, Total 7.2 g/dL (6.0-8.3); Sodium 141 mmol/L (136-145)
[2023-03-14] MEDS ORDERED: Ipratropium/Albuterol 3 ML NEB ONE (23:54)
[2023-03-14] MEDS ORDERED: Albuterol 2.5 MG/0.5 ML NEB ONE (23:55)
[2023-03-15] MEDS ORDERED: Dexamethasone 10 MG/ML VIAL ONE (00:03)
[2023-03-15] MEDS ORDERED: Nitroglycerin 0.4 MG TAB 1 EACH ONE (00:03)
[2023-03-15] MEDS ORDERED: Magnesium 2 GM/50 ML BAG (IN WATER) ONE (00:10)
[2023-03-15] MEDS ORDERED: Albuterol 2.5 MG/0.5 ML NEB ONE (00:55)
[2023-03-15] MEDS ORDERED: Furosemide 20 MG/2 ML VIAL ONE (01:00)
== END 2023-03-15 03:08 | disposition home or self-care (01) ==
LOC: ERS 20:40
DX: R60.9 Edema, unspecified (principal); J44.1 Chronic obstructive pulmonary disease with (acute) exacerbation; I10 Essential (primary) hypertension; G47.33 Obstructive sleep apnea (adult) (pediatric); I25.10 Atherosclerotic heart disease of native coronary artery without angina pectoris; E78.5 Hyperlipidemia, unspecified; F17.210 Nicotine dependence, cigarettes, uncomplicated
CPT/HCPCS: 36415; 70491; 71045; 80053; 83880; 84443; 85025; 93005; 96365; 96375; J1100; J1940; J3475; J7611; J7620; Q9967

== ENCOUNTER 2023-05-14 13:24 | Outpatient (CLI) | payer OTHER | END 2023-05-14 13:25 | disposition home or self-care (01) | LOC: BICMAMMO 13:24 | PROVIDERS: ATTEND Student in an Organized Health Care Education/Training Program | DX: Z12.31 Encounter for screening mammogram for malignant neoplasm of breast (principal) | CPT/HCPCS: 77067 ==

== ENCOUNTER 2023-11-01 16:00 | Outpatient (CLI) | payer OTHER | END 2023-11-01 16:01 | disposition home or self-care (01) | LOC: SLEEPLAB 16:00 | PROVIDERS: ATTEND Otolaryngology Otolaryngic Allergy | DX: G47.33 Obstructive sleep apnea (adult) (pediatric) (principal); R53.83 Other fatigue; R06.83 Snoring; G47.10 Hypersomnia, unspecified; E66.9 Obesity, unspecified; Z68.33 Body mass index [BMI] 33.0-33.9, adult | CPT/HCPCS: 95811 ==

== ENCOUNTER 2023-11-21 17:14 | Inpatient (IN) | payer OTHER ==
[~2023-11-21 17:14] MED LIST changes: -Iopamidol-370 76% 500 ML MDV (1 ML CHARGE) ONE; +Prochlorperazine Edisylate 10 MG in Sodium Chloride 0.9% 50 ML IVPB ONE
[2023-11-21] MEDS ORDERED: diphenhydrAMINE 50 MG/ML VIAL ONE (17:51)
[2023-11-21] MEDS ORDERED: Labetalol HCl 100 MG/20 ML VIAL ONE (17:51)
[2023-11-21] MEDS ORDERED: Metoclopramide HCl 10 MG (2 mL) VIAL ONE (17:51)
[2023-11-21 17:59] LABS: #Basophils Less than 0.03 10x3/uL (0.0-0.2); #Eosinphils Less than 0.03 10x3/uL (0.0-0.7); %Basophils 0.1 % (0.0-1.0); %Lymphocytes 28.9 % (21.0-51.0); %Monocytes 4.8 % (0.0-10.0); %Neutrophils 65.9 % (42.0-75.0); Hematocrit 45.6 % (36.0-47.0); Hemoglobin 15.2 g/dL (12.0-16.0); Mean Corpuscular HGB CONC 33.3 g/dL (32.0-36.0); Mean Corpuscular Hemoglobin 30.5 pg (27.0-31.0); Mean Corpuscular Volume 91.6 fL (78.0-98.0); Mean Platelet Volume 10.8 fL (7.4-10.4); Platelet Count 221 10x3/uL (130-400); RBC Distribution Width 12.6 % (11.5-14.5); Red Blood Cell (RBC) Count 4.98 mill/uL (4.20-5.40)
[2023-11-21 18:14] LABS: ALT (SGPT) 21 U/L (8-55); AST (SGOT) 18 U/L (5-34); Albumin 4.4 g/dL (3.5-5.0); Alkaline Phosphatase 85 U/L (40-110); Anion Gap 15 mmol/L (10-20); BUN (Urea Nitrogen) 18 mg/dL (7.0-18.7); Bilirubin, Total 0.5 mg/dL (0.2-1.2); Calc. Creatinine Clearance 0 mL/min (70-130); Calcium 9.9 mg/dL (7.8-10.44); Carbon Dioxide 24 mmol/L (22-29); Chloride 107 mmol/L (98-107); Estimated GFR 55; Globulin 3.1 g/dL (2.4-3.5); Glucose 92 mg/dL (70-105); Potassium 3.8 mmol/L (3.5-5.1); Protein, Total 7.5 g/dL (6.0-8.3); Sodium 142 mmol/L (136-145)
[2023-11-21 18:19] LABS: Troponin I 0.029 ng/mL (< 0.028)
[2023-11-21] MEDS ORDERED: Albuterol 2.5 MG (0.5 mL) NEB ONE (19:39)
[2023-11-21] MEDS ORDERED: Ipratropium Bromide 2.5 ml Neb ONE (19:39)
[2023-11-21 21:25] LABS: Hemoglobin A1c 5.3 % (4.0-6.0)
[2023-11-21 21:33] LABS: Troponin I 0.018 ng/mL (< 0.028)
[2023-11-21] MEDS ORDERED: hydrALAZINE 20 MG/ML VIAL SLOW IVP PRN (21:36)
[2023-11-21] MEDS ORDERED: diphenhydrAMINE 50 MG/ML VIAL IVP SCH (22:00)
[2023-11-21 22:23] VITALS: BMI 35.9
[2023-11-21] MEDS ORDERED: Gabapentin 300 MG CAP PO PRN (22:50)
[2023-11-21] MEDS: Ipratropium/Albuterol 3 ML NEB NEB SCH (22:56)
[2023-11-21] MEDS: Acetaminophen 500 MG TAB PO PRN (22:58)
[2023-11-21] MEDS: diphenhydrAMINE 50 MG/ML VIAL IVP SCH (23:00)
[2023-11-21] MEDS: Prochlorperazine Edisylate 10 MG in Sodium Chloride 0.9% 50 ML IVPB SCH (23:01)
[2023-11-21] MEDS: Losartan 25 MG TAB PO SCH (23:50)
[2023-11-21] MEDS: NIFEdipine XL 60 MG ER.TAB PO SCH (23:52)
[2023-11-21] MEDS: Furosemide 20 MG TAB PO SCH (23:52)
[2023-11-22 00:35] LABS: Troponin I 0.016 ng/mL (< 0.028)
[2023-11-22 04:49] LABS: Amphetamine Not Detected (NotDetected); Barbiturates Screen Not Detected (NotDetected); Benzodiazepine Screen Not Detected (NotDetected); Cocaine Metabolite Screen Not Detected (NotDetected); Methadone Not Detected (NotDetected); Methamphetamine Not Detected (NotDetected); Opiate Screen Not Detected (NotDetected); Oxycodone Screen Not Detected (NotDetected); Phencyclidine (PCP) Not Detected (NotDetected); THC/Cannabinoid Screen Not Detected (NotDetected); Tricyclic Screen Not Detected (NotDetected)
[2023-11-22 04:55] LABS: #Basophils Less than 0.03 10x3/uL (0.0-0.2); #Eosinphils Less than 0.03 10x3/uL (0.0-0.7); %Basophils 0.3 % (0.0-1.0); %Lymphocytes 35.4 % (21.0-51.0); %Monocytes 5.8 % (0.0-10.0); %Neutrophils 58.2 % (42.0-75.0); Hematocrit 42.3 % (36.0-47.0); Hemoglobin 13.9 g/dL (12.0-16.0); Mean Corpuscular HGB CONC 32.9 g/dL (32.0-36.0); Mean Corpuscular Hemoglobin 30.5 pg (27.0-31.0); Mean Platelet Volume 11.1 fL (7.4-10.4); Platelet Count 200 10x3/uL (130-400); RBC Distribution Width 12.6 % (11.5-14.5); Red Blood Cell (RBC) Count 4.55 mill/uL (4.20-5.40)
[2023-11-22 05:10] LABS: Anion Gap 13 mmol/L (10-20); BUN (Urea Nitrogen) 16 mg/dL (7.0-18.7); Calc. Creatinine Clearance 109 mL/min (70-130); Calcium 9.1 mg/dL (7.8-10.44); Carbon Dioxide 22 mmol/L (22-29); Cardiac Risk 4.4 (Less than 4.5); Chloride 108 mmol/L (98-107); Cholesterol 209 mg/dl (< 200 Desired); Estimated GFR 85; Glucose 117 mg/dL (70-105); HDL Cholesterol 47 mg/dL (>60 Neg Risk); LDL Cholesterol, Calculated 149 mg/dL; Potassium 3.8 mmol/L (3.5-5.1); Sodium 139 mmol/L (136-145); Triglycerides 65 mg/dL (Less than 150)
[2023-11-22] MEDS: Mometasone 200 MCG/Formoterol 5 MCG 120 PUFF INHALER INH SCH (06:35)
[2023-11-22] MEDS: Ipratropium Bromide 2.5 ml Neb NEB SCH (06:36)
[2023-11-22] MEDS: Nicotine 21 MG PATCH TD SCH (08:40)
[2023-11-22] MEDS: Empagliflozin 10 MG TAB PO SCH (08:40)
[2023-11-22] MEDS: Pantoprazole DR 40 MG TAB PO SCH (08:40)
[2023-11-22] MEDS: Furosemide 20 MG TAB PO SCH (08:40)
[2023-11-22] MEDS: Enoxaparin 40 MG (0.4 mL) SYRINGE SC SCH (08:40)
[2023-11-22] MEDS ORDERED: BENRALIZUMAB 30 MG/ML SC SCH (09:00)
[2023-11-22] MEDS: NIFEdipine XL 60 MG ER.TAB PO SCH (21:44)
[2023-11-22] MEDS: Losartan 25 MG TAB PO SCH (21:44)
[2023-11-22] MEDS: Atorvastatin Calcium 40 MG TAB PO SCH (21:45)
[2023-11-23 03:53] LABS: #Basophils Less than 0.03 10x3/uL (0.0-0.2); #Eosinphils Less than 0.03 10x3/uL (0.0-0.7); %Basophils 0.3 % (0.0-1.0); %Lymphocytes 27.7 % (21.0-51.0); %Monocytes 7.4 % (0.0-10.0); %Neutrophils 64.3 % (42.0-75.0); Hematocrit 42.4 % (36.0-47.0); Hemoglobin 13.6 g/dL (12.0-16.0); Mean Corpuscular HGB CONC 32.1 g/dL (32.0-36.0); Mean Corpuscular Hemoglobin 30.4 pg (27.0-31.0); Mean Corpuscular Volume 94.9 fL (78.0-98.0); Mean Platelet Volume 10.9 fL (7.4-10.4); Platelet Count 207 10x3/uL (130-400); RBC Distribution Width 12.6 % (11.5-14.5); Red Blood Cell (RBC) Count 4.47 mill/uL (4.20-5.40)
[2023-11-23 04:33] LABS: Anion Gap 12 mmol/L (10-20); BUN (Urea Nitrogen) 18 mg/dL (7.0-18.7); Calc. Creatinine Clearance 96 mL/min (70-130); Calcium 9.8 mg/dL (7.8-10.44); Carbon Dioxide 26 mmol/L (22-29); Chloride 105 mmol/L (98-107); Estimated GFR 72; Glucose 117 mg/dL (70-105); Potassium 3.7 mmol/L (3.5-5.1); Sodium 139 mmol/L (136-145)
[2023-11-23] MEDS ORDERED: Ibuprofen 200 MG TAB PO PRN (10:30)
[2023-11-23] MEDS: Acetaminophen 500 MG TAB PO SCH (14:05)
[2023-11-23] MEDS: predniSONE 20 MG TAB PO SCH (14:06)
[2023-11-24] MEDS ORDERED: Ipratropium/Albuterol 3 ML NEB ONE (02:54)
[2023-11-24 04:19] LABS: #Basophils Less than 0.03 10x3/uL (0.0-0.2); #Eosinphils Less than 0.03 10x3/uL (0.0-0.7); %Basophils 0.2 % (0.0-1.0); %Lymphocytes 17.9 % (21.0-51.0); %Monocytes 5.6 % (0.0-10.0); %Neutrophils 76.1 % (42.0-75.0); Hematocrit 44.7 % (36.0-47.0); Hemoglobin 14.7 g/dL (12.0-16.0); Mean Corpuscular HGB CONC 32.9 g/dL (32.0-36.0); Mean Corpuscular Hemoglobin 30.6 pg (27.0-31.0); Mean Corpuscular Volume 93.1 fL (78.0-98.0); Mean Platelet Volume 11.1 fL (7.4-10.4); Platelet Count 218 10x3/uL (130-400); RBC Distribution Width 12.6 % (11.5-14.5)
[2023-11-24 04:42] LABS: Anion Gap 16 mmol/L (10-20); BUN (Urea Nitrogen) 18 mg/dL (7.0-18.7); Calc. Creatinine Clearance 101 mL/min (70-130); Calcium 10.3 mg/dL (7.8-10.44); Carbon Dioxide 22 mmol/L (22-29); Chloride 106 mmol/L (98-107); Estimated GFR 77; Glucose 150 mg/dL (70-105); Potassium 3.9 mmol/L (3.5-5.1); Sodium 140 mmol/L (136-145)
[2023-11-24] MEDS: predniSONE 20 MG TAB PO SCH (09:36)
[2023-11-24] MEDS: Ipratropium/Albuterol 3 ML NEB NEB SCH (13:37)
[2023-11-24 19:43] VITALS: BP 154/76; TEMP 98.1
== END 2023-11-24 18:00 | disposition home or self-care (01) | DRG 304 ==
LOC: ERS 17:14 → 2NO 20:04
PROVIDERS: ADMIT Family Medicine; ATTEND Family Medicine
PROC: 5A09357 Assistance with Respiratory Ventilation, Less than 24 Consecutive Hours, Continuous Positive Airway Pressure (ICD-10-PCS; principal; 2023-11-22)
DX: I16.1 Hypertensive emergency (principal); J96.01 Acute respiratory failure with hypoxia; N17.9 Acute kidney failure, unspecified; J44.1 Chronic obstructive pulmonary disease with (acute) exacerbation; I25.10 Atherosclerotic heart disease of native coronary artery without angina pectoris; G47.33 Obstructive sleep apnea (adult) (pediatric); G43.909 Migraine, unspecified, not intractable, without status migrainosus; E78.5 Hyperlipidemia, unspecified; F41.9 Anxiety disorder, unspecified; F31.9 Bipolar disorder, unspecified; F17.210 Nicotine dependence, cigarettes, uncomplicated; I10 Essential (primary) hypertension; Z95.0 Presence of cardiac pacemaker; Z79.899 Other long term (current) drug therapy
CPT/HCPCS: 36415; 36416; 70450; 71045; 80048; 80053; 80061; 80306; 83036; 83880; 84145; 84443; 84484; 85025; 93005; 93306; 94640; 94644; 94660; 96365; 96375; J0780; J1200; J1650; J2765; J7512; J7611; J7620

== ENCOUNTER 2024-05-16 01:16 | Emergency (ER) | payer OTHER ==
[2024-05-16] MEDS ORDERED: Lidocaine 1% w/Epinephrine 1:100K 20 ML VIAL ONE (01:21)
[2024-05-16] MEDS ORDERED: Dexamethasone 10 MG/ML VIAL ONE (01:43)
== END 2024-05-16 02:15 | disposition home or self-care (01) ==
LOC: ERS 01:16
DX: S81.811A Laceration without foreign body, right lower leg, initial encounter (principal); M16.11 Unilateral primary osteoarthritis, right hip; I10 Essential (primary) hypertension; J44.89 Other specified chronic obstructive pulmonary disease; F17.210 Nicotine dependence, cigarettes, uncomplicated; W25.XXXA Contact with sharp glass, initial encounter
CPT/HCPCS: 12002; 20552; J1100

== ENCOUNTER 2024-05-28 10:56 | Outpatient (CLI) | payer OTHER | END 2024-05-28 10:57 | disposition home or self-care (01) | LOC: BICMAMMO 10:56 | PROVIDERS: ATTEND Family Medicine | DX: Z12.31 Encounter for screening mammogram for malignant neoplasm of breast (principal); N64.89 Other specified disorders of breast | CPT/HCPCS: 77067 ==

== ENCOUNTER 2024-05-28 11:34 | Outpatient (CLI) | payer OTHER | END 2024-05-28 11:35 | disposition home or self-care (01) | LOC: BICRAD 11:34 | PROVIDERS: ATTEND Student in an Organized Health Care Education/Training Program | DX: M17.11 Unilateral primary osteoarthritis, right knee (principal) ==

== ENCOUNTER 2024-06-04 07:57 | Outpatient (CLI) | payer OTHER | END 2024-06-04 07:58 | disposition home or self-care (01) | LOC: BICMAMMO 07:57 | PROVIDERS: ATTEND Family Medicine | DX: N64.89 Other specified disorders of breast (principal) | CPT/HCPCS: G0279 ==

== ENCOUNTER 2024-11-17 13:06 | Outpatient (CLI) | payer OTHER | END 2024-11-17 13:07 | disposition home or self-care (01) | LOC: BICRAD 13:06 | PROVIDERS: ATTEND Family Medicine | DX: M25.511 Pain in right shoulder (principal); M54.2 Cervicalgia; M47.812 Spondylosis without myelopathy or radiculopathy, cervical region; M43.13 Spondylolisthesis, cervicothoracic region | CPT/HCPCS: 72052 ==

== ENCOUNTER 2024-12-28 13:05 | Outpatient (CLI) | payer OTHER | END 2024-12-28 13:06 | disposition home or self-care (01) | LOC: RAD 13:05 | PROVIDERS: ATTEND Student in an Organized Health Care Education/Training Program | DX: M77.8 Other enthesopathies, not elsewhere classified (principal); M25.511 Pain in right shoulder | CPT/HCPCS: 71046 ==

== ENCOUNTER 2024-12-30 08:59 | Outpatient (CLI) | payer OTHER | END 2024-12-30 09:00 | disposition home or self-care (01) | LOC: MRI 08:59 | PROVIDERS: ATTEND Student in an Organized Health Care Education/Training Program | DX: M67.811 Other specified disorders of synovium, right shoulder (principal); M75.111 Incomplete rotator cuff tear or rupture of right shoulder, not specified as traumatic; M19.011 Primary osteoarthritis, right shoulder | CPT/HCPCS: 76014 ==